=== PATIENT | female | born 1960 | race Caucasian/White ===

== ENCOUNTER 2019-10-07 09:49 | Day surgery (SDC) | payer BC ==
[2019-10-06 15:08] VITALS: BMI 19.8
[2019-10-07 12:43] VITALS: TEMP 97.6
[2019-10-07 13:34] VITALS: BP 104/53; PULSE 69
--- NOTE | 2019-10-11 17:26 | PATH ---
Surgical Pathology Report Patient Name: JUSTUS COPELAND [facility]. Rec. #: [id number] /Age/Gender: 1960 (Age: 59) / F Account: [id number] Location: [facility] Taken: 10/07/2019 Received: 10/07/2019 Reported: 10/11/2019 Physicians: Jael Means M.D. Specimen(s) Received A: SIGMOID POLYP B: TRANSVERSE COLON POLYP C: CECUM D: ILEUM E: HEPATIC FLEXURE F: TRANSVERSE COLON G: DESCENDING H: SIGMOID I: RECTUM Clinical History Change in bowel habit, rectal bleeding, history of ulcerative proctosigmoiditis Postoperative diagnosis: Colon polyps, proctitis Final Diagnosis A. SIGMOID COLON, POLYP, POLYPECTOMY: HYPERPLASTIC POLYP. B. TRANSVERSE COLON, POLYPS, POLYPECTOMY: COLONIC MUCOSA WITH MILD SUPERFICIAL HYPERPLASTIC FEATURES. C. CECUM, BIOPSY: COLONIC MUCOSA WITHOUT SIGNIFICANT PATHOLOGIC FINDINGS. D. ILEUM, BIOPSY: ILEAL MUCOSA WITHOUT SIGNIFICANT PATHOLOGIC FINDINGS. E. COLON, HEPATIC FLEXURE, BIOPSY: COLONIC MUCOSA WITHOUT SIGNIFICANT PATHOLOGIC FINDINGS. F. TRANSVERSE COLON, BIOPSY: COLONIC MUCOSA WITHOUT SIGNIFICANT PATHOLOGIC FINDINGS. G. DESCENDING COLON, BIOPSY: COLONIC MUCOSA WITH SMALL LYMPHOID AGGREGATE. H. SIGMOID COLON, BIOPSY: COLONIC MUCOSA WITHOUT SIGNIFICANT PATHOLOGIC FINDINGS. I. RECTUM, BIOPSY: COLONIC MUCOSA WITH SEVERE CHRONIC ACTIVE PROCTITIS. NO GRANULOMA OR DYSPLASIA IDENTIFIED. SEE COMMENT. Comment: Part I, findings are consistent with history of ulcerative proctosigmoiditis. Suggest clinical and endoscopic correlation. Electronically Signed Ruchi Snider M.D. Gross Description A. Received in formalin, labeled "polyp sigmoid" are 4 villarreal, irregular portions of soft tissue ranging from 0.2-0.5 cm. in greatest dimension. The specimens are submitted in toto in one cassette. B. Received in formalin, labeled "polyps transverse colon" are 3 villarreal, irregular portions of soft tissue ranging from 0.2-0.4 cm. in greatest dimension. The specimens are submitted in toto in one cassette. C. Received in formalin, labeled "biopsy cecum" are 2 villarreal, irregular portions of soft tissue measuring 0.3 and 0.4 cm. in greatest dimension. The specimens are submitted in toto in one cassette. D. Received in formalin, labeled "biopsy ileum" are 2 villarreal, irregular portions of soft tissue averaging 0.3 cm. in greatest dimension. The specimens are submitted in toto in one cassette. E. Received in formalin, labeled "biopsy hepatic flexure" are 2 villarreal, irregular portions of soft tissue measuring 0.2 and 0.3 cm. in greatest dimension. The specimens are submitted in toto in one cassette. F. Received in formalin, labeled "biopsy transverse colon" are 4 villarreal, irregular portions of soft tissue ranging from 0.1-0.4 cm. in greatest dimension. The specimens are submitted in toto in one cassette. G. Received in formalin, labeled "biopsy descending colon" are 2 villarreal, irregular portions of soft tissue averaging 0.4 cm. in greatest dimension. The specimens are submitted in toto in one cassette. H. Received in formalin, labeled "biopsy sigmoid" are 2 villarreal, irregular portions of soft tissue measuring 0.1 and 0.3 cm. in greatest dimension. The specimens are submitted in toto in one cassette. I. Received in formalin, labeled "biopsy rectum" are 6 villarreal, irregular portions of soft tissue ranging from 0.1-0.4 cm. in greatest dimension. The specimens are submitted in toto in one cassette. 10/10/2019 [facility]10/10/2019
== END 2019-10-07 13:48 | disposition home or self-care (01) ==
LOC: JASU-SURG 09:49
PROVIDERS: ATTEND Internal Medicine Gastroenterology
PROC: 0DBL8ZX Excision of Transverse Colon, Via Natural or Artificial Opening Endoscopic, Diagnostic (ICD-10-PCS; 2019-10-07)
PROC: 0DBN8ZX Excision of Sigmoid Colon, Via Natural or Artificial Opening Endoscopic, Diagnostic (ICD-10-PCS; 2019-10-07)
PROC: 0DBP8ZX Excision of Rectum, Via Natural or Artificial Opening Endoscopic, Diagnostic (ICD-10-PCS; principal; 2019-10-07 11:30)
DX: K92.1 Melena (principal); D12.3 Benign neoplasm of transverse colon; D12.5 Benign neoplasm of sigmoid colon; K62.89 Other specified diseases of anus and rectum; K52.89 Other specified noninfective gastroenteritis and colitis; K63.89 Other specified diseases of intestine
CPT/HCPCS: 88305-TC; 88309-TC

== ENCOUNTER 2022-06-27 04:17 | Day surgery (SDC) | payer OTHER, BC ==
[2022-06-25 10:15] VITALS: BMI 20.2
[2022-06-27 09:51] VITALS: TEMP 97.5
[2022-06-27 10:19] VITALS: BP 107/56; PULSE 66; RESP 15
== END 2022-06-27 10:40 | disposition home or self-care (01) ==
LOC: JASU-ENDO 04:17
PROVIDERS: ATTEND Internal Medicine Gastroenterology
PROC: 0DBL8ZX Excision of Transverse Colon, Via Natural or Artificial Opening Endoscopic, Diagnostic (ICD-10-PCS; 2022-06-27)
PROC: 0DBN8ZX Excision of Sigmoid Colon, Via Natural or Artificial Opening Endoscopic, Diagnostic (ICD-10-PCS; 2022-06-27)
PROC: 0DBP8ZX Excision of Rectum, Via Natural or Artificial Opening Endoscopic, Diagnostic (ICD-10-PCS; 2022-06-27)
PROC: 0DBB8ZX Excision of Ileum, Via Natural or Artificial Opening Endoscopic, Diagnostic (ICD-10-PCS; 2022-06-27)
PROC: 0DBC8ZX Excision of Ileocecal Valve, Via Natural or Artificial Opening Endoscopic, Diagnostic (ICD-10-PCS; 2022-06-27)
PROC: 0DBH8ZX Excision of Cecum, Via Natural or Artificial Opening Endoscopic, Diagnostic (ICD-10-PCS; 2022-06-27)
PROC: 0DBK8ZX Excision of Ascending Colon, Via Natural or Artificial Opening Endoscopic, Diagnostic (ICD-10-PCS; principal; 2022-06-27 09:00)
DX: Z12.11 Encounter for screening for malignant neoplasm of colon (principal); D12.0 Benign neoplasm of cecum; K51.90 Ulcerative colitis, unspecified, without complications
CPT/HCPCS: 88305-TC

== ENCOUNTER 2023-11-14 05:21 | Emergency (ER) | payer OTHER, BC ==
[2023-11-14 05:32] VITALS: BP 113/73; PULSE 79; RESP 18; TEMP 97.6; BMI 19.7
[2023-11-14] MEDS ORDERED: SODIUM CHLORIDE 0.9% 500 ML INFUS.BAG IV ONE (06:18)
[2023-11-14] MEDS ORDERED: DEXAMETHASONE 0.5 MG TABLET PO ONE (06:27)
[2023-11-14] MEDS ORDERED: FAMOTIDINE 10 MG TABLET PO ONE (06:27)
[2023-11-14] MEDS ORDERED: FAMOTIDINE 20 MG TABLET ONE (06:47)
[2023-11-14 06:48] LABS: BASO % 1.2 % (0-2.0); HEMATOCRIT 37.5 % (32.4-45.2); HEMOGLOBIN 12.1 GM/dL (10.7-15.3); LYMPH % 21.8 % (8-40); MCH 24.7 pg (25.7-33.7); MCHC 32.2 g/dl (32.0-36.0); MEAN CELL VOLUME 76.5 fl (80-96); MONO % 6.7 % (3.8-10.2); NEUT % 69.3 % (42.8-82.8); PLATELET COUNT 345 10^3/uL (134-434); RDW 13.7 % (11.6-15.6); WHITE BLOOD COUNT 11.5 K/mm3 (4.0-10.0)
[2023-11-14] MEDS ORDERED: DEXAMETHASONE 4 MG TABLET (FP) ONE (06:48)
[2023-11-14 06:54] LABS: INR 1.02 (0.83-1.09); PROTHROMBIN TIME (PATIENT) 11.8 SEC (9.7-13.0)
[2023-11-14 06:57] LABS: ACTIVATED PTT 27.9 SECONDS (25.2-36.5)
[2023-11-14 07:09] LABS: POTASSIUM 4.7 mmol/L (3.5-5.1)
[2023-11-14 07:11] LABS: CALCIUM 9.2 mg/dL (8.5-10.1)
[2023-11-14 07:12] LABS: MAGNESIUM 2.1 mg/dL (1.8-2.4)
[2023-11-14 07:15] LABS: CREATININE 0.8 mg/dL (0.55-1.3)
[2023-11-14 07:16] LABS: BILIRUBIN,TOTAL 0.4 mg/dL (0.2-1); TOT PROT 7.5 g/dl (6.4-8.2)
[2023-11-14 08:53] LABS: EPI CELLS >36 /uL (0-25.1); HYALINE CASTS 10 /uL (0-3.1); PH,URINE 5.5 (5.0-8.0); URINE APPEARANCE CLEAR; URINE BACTERIA 176 /uL (0-1359); URINE BILIRUBIN NEGATIVE (NEGATIVE); URINE COLOR YELLOW; URINE GLUCOSE (UA) NEGATIVE (NEGATIVE); URINE KETONE TRACE (NEGATIVE); URINE LEUK ESTERASE TRACE (NEGATIVE); URINE NITRITE NEGATIVE (NEGATIVE); URINE PROTEIN 2+ (NEGATIVE); URINE UROBILINOGEN 0.2 mg/dL (0.2-1.0); URINE WBC 45 /uL (0-25.8)
[2023-11-14 09:12] LABS: URINE RBC 18.9 /uL (0-23.9)
[2023-11-14 11:02] LABS: EPI CELLS 13 /uL (0-25.1); HYALINE CASTS 0 /uL (0-3.1); URINE APPEARANCE CLEAR; URINE BACTERIA 23 /uL (0-1359); URINE BILIRUBIN NEGATIVE (NEGATIVE); URINE COLOR YELLOW; URINE GLUCOSE (UA) NEGATIVE (NEGATIVE); URINE KETONE NEGATIVE (NEGATIVE); URINE LEUK ESTERASE NEGATIVE (NEGATIVE); URINE NITRITE NEGATIVE (NEGATIVE); URINE PROTEIN 1+ (NEGATIVE); URINE RBC 13 /uL (0-23.9); URINE UROBILINOGEN 0.2 mg/dL (0.2-1.0); URINE WBC 18 /uL (0-25.8)
== END 2023-11-14 11:17 | disposition left against medical advice (07) ==
LOC: JERFT 05:21 → JER 05:21 → JERFT 11:17
DX: L50.9 Urticaria, unspecified (principal); R19.7 Diarrhea, unspecified; R53.1 Weakness; T78.40XA Allergy, unspecified, initial encounter; Z20.822 Contact with and (suspected) exposure to COVID-19
CPT/HCPCS: 0241U-QW; 36415; 71046-TC-FY; 80053; 81003; 83735; 84484; 85025; 85610; 85730; 87086; 93005; 93010; 99285-25

== ENCOUNTER 2023-11-14 12:53 | Observation (INO) | payer OTHER, BC ==
[2023-11-14 12:57] VITALS: BMI 19.7
[2023-11-14 17:15] LABS: BASO % 0.3 % (0-2.0); HEMATOCRIT 33.8 % (32.4-45.2); LYMPH % 20.3 % (8-40); MCH 24.8 pg (25.7-33.7); MCHC 32.5 g/dl (32.0-36.0); MEAN CELL VOLUME 76.2 fl (80-96); MEAN PLT VOLUME 7.1 fl (7.5-11.1); MONO % 3.3 % (3.8-10.2); NEUT % 76.1 % (42.8-82.8); PLATELET COUNT 341 10^3/uL (134-434); RBC 4.43 M/mm3 (3.60-5.2); RDW 13.5 % (11.6-15.6); WHITE BLOOD COUNT 10.6 K/mm3 (4.0-10.0)
[2023-11-14 17:37] LABS: POTASSIUM 4.7 mmol/L (3.5-5.1)
[2023-11-14 17:39] LABS: ALBUMIN 3.9 g/dl (3.4-5.0); CALCIUM 9.7 mg/dL (8.5-10.1)
[2023-11-14 17:40] LABS: BLOOD UREA NITROGEN 16.1 mg/dL (7-18)
[2023-11-14 17:43] LABS: CREATININE 0.8 mg/dL (0.55-1.3)
[2023-11-14 17:44] LABS: BILIRUBIN,TOTAL 0.4 mg/dL (0.2-1); TOT PROT 7.3 g/dl (6.4-8.2)
[2023-11-14] MEDS ORDERED: ATORVASTATIN CA 10 MG TABLET (FP) ONE (22:54)
[2023-11-14] MEDS ORDERED: DIPHTH,PERTUSS(ACELL),TET 0.5 ML DISP.SYRIN IM ONE (22:55)
[2023-11-14] MEDS ORDERED: DONEPEZIL HCL 5 MG TABLET (FP) ONE (22:55)
[2023-11-14] MEDS: DIPHTH,PERTUSS(ACELL),TET 0.5 ML DISP.SYRIN IM ONE (23:05)
[2023-11-14] MEDS: ATORVASTATIN CA 10 MG TABLET (FP) PO SCH (23:05)
[2023-11-14] MEDS: DONEPEZIL HCL 10 MG TABLET (FP) PO SCH (23:05)
[2023-11-14 23:36] VITALS: RESP 18
[2023-11-15] MEDS: diphenhydrAMINE HCL 25 MG CAPSULE (FP) PO PRN
[2023-11-15] MEDS: MEMANTINE HCL 10 MG TABLET (FP) PO SCH
[2023-11-15 09:05] LABS: POTASSIUM 3.8 mmol/L (3.5-5.1)
[2023-11-15 09:16] LABS: CALCIUM 9.2 mg/dL (8.5-10.1)
[2023-11-15 09:17] LABS: BLOOD UREA NITROGEN 11.3 mg/dL (7-18)
[2023-11-15 09:20] LABS: CREATININE 0.6 mg/dL (0.55-1.3)
[2023-11-15] MEDS: predniSONE 20 MG TABLET (UD) PO SCH (09:41)
[2023-11-15 10:09] VITALS: BP 104/62; PULSE 84; TEMP 98.4
== END 2023-11-15 12:21 | disposition home or self-care (01) ==
LOC: JER 12:53 → JERBED 18:44 → J4W 23:52
PROVIDERS: ADMIT Internal Medicine; ATTEND Internal Medicine
PROC: 3E023GC Introduction of Other Therapeutic Substance into Muscle, Percutaneous Approach (ICD-10-PCS; principal; 2023-11-14)
DX: R55 Syncope and collapse (principal); L50.0 Allergic urticaria; G30.9 Alzheimer's disease, unspecified; F02.80 Dementia in other diseases classified elsewhere, unspecified severity, without behavioral disturbance, psychotic disturbance, mood disturbance, and anxiety; X58.XXXA Exposure to other specified factors, initial encounter; Y93.89 Activity, other specified; Y92.89 Other specified places as the place of occurrence of the external cause; S02.2XXA Fracture of nasal bones, initial encounter for closed fracture; E78.5 Hyperlipidemia, unspecified; Z88.2 Allergy status to sulfonamides; Z88.8 Allergy status to other drugs, medicaments and biological substances; Z90.49 Acquired absence of other specified parts of digestive tract; Z87.891 Personal history of nicotine dependence; Z23 Encounter for immunization
CPT/HCPCS: 0241U-QW; 36415; 70450-TC; 70486-TC; 71046-TC-FY; 72125-TC; 80048; 80053; 80061; 81003; 83735; 84484; 85025; 85610; 85730; 87086; 90715; 93005; 93010; 96372; 99285-25; G0378

== ENCOUNTER 2024-01-20 04:19 | Day surgery (SDC) | payer OTHER, BC ==
[2024-01-18 15:43] VITALS: BMI 19.3
[2024-01-20 08:22] VITALS: TEMP 97.8
[2024-01-20 09:14] VITALS: RESP 18
[2024-01-20 10:03] VITALS: BP 118/62; PULSE 73
== END 2024-01-20 10:00 | disposition home or self-care (01) ==
LOC: JASU-ENDO 04:19
PROVIDERS: ATTEND Internal Medicine Gastroenterology
PROC: 0DBL8ZX Excision of Transverse Colon, Via Natural or Artificial Opening Endoscopic, Diagnostic (ICD-10-PCS; 2024-01-20)
PROC: 0DBN8ZX Excision of Sigmoid Colon, Via Natural or Artificial Opening Endoscopic, Diagnostic (ICD-10-PCS; 2024-01-20)
PROC: 0DBP8ZX Excision of Rectum, Via Natural or Artificial Opening Endoscopic, Diagnostic (ICD-10-PCS; 2024-01-20)
PROC: 0DBB8ZX Excision of Ileum, Via Natural or Artificial Opening Endoscopic, Diagnostic (ICD-10-PCS; 2024-01-20)
PROC: 0DBH8ZX Excision of Cecum, Via Natural or Artificial Opening Endoscopic, Diagnostic (ICD-10-PCS; 2024-01-20)
PROC: 0DBK8ZX Excision of Ascending Colon, Via Natural or Artificial Opening Endoscopic, Diagnostic (ICD-10-PCS; principal; 2024-01-20 09:00)
DX: Z12.11 Encounter for screening for malignant neoplasm of colon (principal); K51.80 Other ulcerative colitis without complications; K64.8 Other hemorrhoids; K64.4 Residual hemorrhoidal skin tags; Z86.010 Personal history of colon polyps
CPT/HCPCS: 88305-TC

== ENCOUNTER 2024-12-09 14:02 | Emergency (ER) | payer OTHER, BC ==
[2024-12-09 14:12] VITALS: BP 119/75; PULSE 103; RESP 18; TEMP 97.7; BMI 20.9
[2024-12-09] MEDS ORDERED: ACETYLCYSTEINE 20% 200MG/ML 4 ML VIAL *FOR ORAL / INH USE ONLY ONE (15:33)
[2024-12-09] MEDS ORDERED: ALBUTEROL SO4 0.083% IH SOL 2.5 MG/3 ML VIAL.NEB. NEB ONE (15:34)
[2024-12-09] MEDS: ACETYLCYSTEINE 20% 200MG/ML 30 ML VIAL *FOR ORAL / INH USE ONLY NEB ONE ×2 (15:41→16:07)
[2024-12-09] MEDS ORDERED: ALBUTEROL SO4 0.083% IH SOL 2.5 MG/3 ML VIAL.NEB. NEB SCH ×2 (15:49→20:00)
== END 2024-12-09 17:09 | disposition home or self-care (01) ==
LOC: JER 14:02
PROC: 3E0F7GC Introduction of Other Therapeutic Substance into Respiratory Tract, Via Natural or Artificial Opening (ICD-10-PCS; principal; 2024-12-09)
DX: J10.1 Influenza due to other identified influenza virus with other respiratory manifestations (principal); R05.9 Cough, unspecified; Z20.822 Contact with and (suspected) exposure to COVID-19
CPT/HCPCS: 0241U-QW; 71045-TC-FY; 99284-25

== ENCOUNTER 2024-12-31 16:03 | Emergency (ER) | payer OTHER, BC ==
[2024-12-31 16:46] VITALS: BP 113/67; PULSE 79; RESP 18; TEMP 98.7; BMI 15.2
== END 2024-12-31 21:20 ==
LOC: JER 16:03
DX: S09.90XA Unspecified injury of head, initial encounter (principal); W19.XXXA Unspecified fall, initial encounter
CPT/HCPCS: 70450-TC; 70486-TC; 72125-TC; 99284-25